=== PATIENT | female | born 2000 | race Caucasian/White ===

== ENCOUNTER 2022-06-29 19:07 | Emergency (ER) | payer OTHER ==
[~2022-06-29] VITALS: Ht 170.2 cm; Wt 138.3 kg
[2022-06-29] MEDS ORDERED: KETOROLAC 30 MG/ML 1ML VIAL IV ONE (20:00)
[2022-06-29] MEDS ORDERED: AMPICILLIN SOD/SULBACTAM SOD 3 GM in D5W MINI-BAG PLUS 100 ML IV ONE (20:00)
[2022-06-29 20:42] LABS: BASO % 0.2 % (0.0-1.0); EOS # 0.3 10^3/uL (0.0-0.5); HEMATOCRIT 40.2 % (36.0-47.0); HEMOGLOBIN 12.4 g/dl (12.0-15.5); LYMPH % 28.6 % (24.0-44.0); MEAN CORPUSCULAR HEMOGLOBIN 27.1 pg (27.0-33.0); MEAN CORPUSCULAR HGB CONC 30.8 g/dl (32.0-36.5); MEAN CORPUSCULAR VOLUME 87.8 fl (80.0-96.0); MONO # 0.5 10^3/uL (0.0-0.8); MONO % 4.6 % (2.0-8.0); NEUTROPHILS # 6.7 10^3/uL (1.5-8.5); NEUTROPHILS % 63.2 % (36.0-66.0); PLATELET COUNT, AUTOMATED 441 10^3/uL (150-450); RED BLOOD COUNT 4.58 10^6/uL (4.00-5.40); WHITE BLOOD COUNT 10.6 10^3/uL (4.0-10.0)
[2022-06-29 21:25] LABS: BLOOD UREA NITROGEN 8 MG/DL (9-23); CALCIUM LEVEL 8.7 MG/DL (8.5-10.1); CARBON DIOXIDE LEVEL 25 MMOL/L (20-31); CHLORIDE LEVEL 106 MMOL/L (98-107); CREATININE FOR GFR 0.75 MG/DL (0.55-1.30); GLOMERULAR FILTRATION RATE > 60.0 (>60); GLUCOSE, FASTING 74 MG/DL (60-100); POTASSIUM SERUM 4.7 MMOL/L (3.5-5.1); SODIUM LEVEL 139 MMOL/L (136-145)
[2022-06-29 21:26] LABS: ERYTHROCYTE SEDIMENTATION RATE 74 mm/hr (0-20)
[2022-06-29] MEDS ORDERED: DIFL150T PO (22:07)
[2022-06-29 22:14] VITALS: BP 131/74
== END 2022-06-29 22:20 | disposition home or self-care (01) ==
LOC: M ED 19:07
DX: L03.011 Cellulitis of right finger (principal); S61.051A Open bite of right thumb without damage to nail, initial encounter; Y92.099 Unspecified place in other non-institutional residence as the place of occurrence of the external cause; Y93.K9 Activity, other involving animal care; F32.9 Major depressive disorder, single episode, unspecified
CPT/HCPCS: 73130; 80048; 84702; 85025; 85652; 86140; 87040; 96360; 96375; 99284; J0295; J1885